=== PATIENT | male | born 1980 | race Caucasian/White ===

== ENCOUNTER 2016-11-21 14:25 | Emergency (ER) | payer SELFPAY ==
[2016-11-21 14:31] VITALS: TEMP 97.5; BMI 28.7
--- NOTE | 2016-11-21 15:15 | EDPRACDOC ---
[id number] Information Source: Patient Mode of Arrival:: Car Home Medications: Home Medications Citalopram (anti-depressant) [Celexa] 40 mg PO DAILY 11/21/16 Hydrocodone Bit/Acetaminophen [[place] 5-325 Tablet] 1 each PO Q4H #10 tab Hydrocortisone Acetate [Proctocort] 30 mg RC BID #14 supp.rect 11/21/16 Ibuprofen 600 mg PO TID #20 tablet 11/21/16 Allergies/Adverse Reactions: Allergies Allergy/AdvReac Type Severity Reaction Status Date / Time No Known Allergies Allergy Verified 11/21/16 14:31 - History of Present Illness Onset: 1 week Symptoms started: Reports: Spontaneous Location: Reports: Rectum Symptoms: Reports: Pain, Bleeding Due To: Reports: Unknown History Of: Reports: None Severity:: Reports: Moderate BM: Reports: Sharp, Stabbing Stool: Reports: Firm Worsens: Reports: Bowel Movement Improves: Reports: Standing Associated Sign & Symptoms: Reports: Rectal Bleeding - Other History Other History: PT PRESENTS TODAY WITH RECTAL PAIN X 1 WEEK. SOME BRIGHT RED BLEEDING PER RECTUM. DENIES FEVER, ABD PAIN, N/V/D. ED Past Medical History - History Reviewed Yes Nurses notes reviewed and agree except as marked - Patient Medical History Cardiac History: Reports: Hypertension (Not diagnosed per pt) Psychological History: Reports: Anxiety. Denies: Depression, Substance Use Disorder Systemic History: Denies: Cancer Surgical History: Reports: Appendectomy, Cholecystectomy, Other (vasectomy). Denies: Tonsillectomy/Adnoidectomy - Family Medical History Reports: Hypertension (Father) - Social Medical History Smoking Status: Never smoker Social History: Denies: Amphetamine Use, Barbiturate Use, Benzodiazipine Use, Cocaine Use, Heroin Use, Marijuana Use, Methadone Use, MDMA (Ecstasy) Use, Substance Use Disorder EDM Review of Systems - Review of Systems ROS Negative Except as Marked: Yes All systems reviewed and were negative except as marked Constitutional: No Symptoms Reported Respiratory: No Symptoms Reported Cardiovascular: No Symptoms Reported Gastrointestinal: Other (RECTAL PAIN) Genitourinary: No Symptoms Reported Neurological: No Symptoms Reported Musculoskeletal: No Symptoms Reported Integumentary: No Symptoms Reported - Physical Exam Constitutional: Alert (Awake), No apparent distress Oriented to: Time, Person, Place Last recorded Vital Signs: Last Vital Signs Temp 97.5 F 11/21/16 14:28 Pulse 80 11/21/16 14:28 Resp 20 11/21/16 14:28 BP 181/93 H 11/21/16 14:28 Pulse Ox 98 11/21/16 14:28 Oxygen Pulse Oxygen Saturation 98 O2 Device Oxygen Flow Rate Fraction of Inspired Oxygen ( FIO2) - HEENT Head: Normal Eye Exam: Normal Neck: Normal, Denies Pain, Midline - Respiratory/Cardiovascular Respiratory: Normal - CTA Cardiovascular: Normal - GI Auscultation: Normal Palpation: Normal Tenderness: Non tender Rectal Exam: Hemorrhoids (NON THROMBOSED; 1 HEMORRHOID AT 6 O'CLOCK POSITION; NO DRAINAGE/INFECTION) - Musculoskeletal Back: Normal Extremities: Normal - Integumentary Skin: Normal Lymphatics: Normal - Neurologic Cerebellar: Normal Mood Description: Normal Thought: Coherent Perception: Normal Decision Time to Discharge: 15:14 - Departure Disposition: Home Condition: Good Final Diagnosis: Hemorrhoids Instructions: Hemorrhoids (ED) Education/Counseling Given To: Patient Education/Counseling Given Regarding: Diagnosis, Treatment, Follow Up Referrals: Rodney Gomez MD [Primary Care Provider] - One Week Nikhil Lopez MD [Staff Physician] - One Week Prescriptions: Hydrocodone Bit/Acetaminophen [[place] 5-325 Tablet] 1 each PO Q4H #10 tab Hydrocortisone Acetate [Proctocort] 30 mg RC BID #14 supp.rect Ibuprofen 600 mg PO TID #20 tablet Additional Instructions: INCREASE FIBER AND WATER TO HELP BULK STOOLS. TAKE STOOL SOFTENERS TO MAKE BM' S EASIER. FOLLOW UP WITH GI IF NEEDED.
[2016-11-21 15:47] VITALS: BP 147/94; PULSE 64
== END 2016-11-21 15:45 | disposition home or self-care (01) ==
LOC: ED 14:25
DX: K64.9 Unspecified hemorrhoids (principal)
CPT/HCPCS: 99282